=== PATIENT | male | born 1995 | race Caucasian/White ===

== ENCOUNTER 2017-12-07 17:59 | Emergency (ER) | payer OTHER ==
--- NOTE | 2017-12-07 18:21 | EDPHY ---
H & P Stated Complaint: + LOC hit head 2 days ago-CHONG, nasea, vision changes, and neck pain Time Seen by Provider: 12/07/17 18:20 HPI/ROS: HPI: This is a 22-year-old male who presents with Chief Complaint: + LOC hit head 2 days ago-CHONG, nausea, vision changes, and neck pain Location:head, neck Quality: fainted, pain Duration: 2 days ago Signs and Symptoms: no fever, no nausea, no vomiting, no photophobia, no noise sensitivity, no neck stiffness, no ear pain, no tinnitus, no nasal congestion, + sinus pressure, no weakness, no radiation, no aura, + nasal congestion Timing: Acute, lasting a few seconds, resolved Severity: Moderate Context: Patient recently moved here in June 2017 to live with his and from [place]. Reports that he has chronic migraines and sinus disease. Presents today with complaints of nausea, posterior neck pain since 2 days ago. Patient reports that he attended cervical thoracic lumbar sacral spinal manipulation around 2:00 p.m. He reports that after arriving home, he drank a cold milk shake. He reports that he was standing in the kitchen when he was drinking a milkshake he began to feel lightheaded and the next thing he remembers he woke up on the floor. And was in the kitchen talking to the patient and saw entire event. Reports that he hit the back of his head on the tile floor. Loss of consciousness was approximately"a few seconds." He woke up feeling disoriented but was at his baseline. Ate dinner without difficulty. And will come up several times in the middle night. Patient reports this will be his 5th concussion. Ambulating without any difficulty. Eating and drinking without any difficulty. Patient denies any paresthesias/weakness/decreased range of motion. He does report that he has posterior neck pain rate greater than left; believes it to be muscular in nature. Reports he has a primary care provider. Patient reports that he did not drink as much fluid as he should yesterday. Modifying Factors: None Comment: ROS: see HPI Constitutional: No fever, no chills, no weight loss Eyes: No blurred vision Respiratory: No shortness of breath, no cough Cardiovascular: No chest pain, no palpitations Gastrointestinal: No nausea, no vomiting, no diarrhea, no hematemesis, no blood in stool Genitourinary: No dysuria, no blood in urine Extremities: No myalgias, no edema Neurologic: No weakness, no numbness Skin: No rashes, no petechiae Hematologic: No bruising, no bleeding MEDICAL/SURGICAL/SOCIAL HISTORY: Medical history: Chronic migraines, chronic back and neck pain Surgical history: Denies Social history: Lives with his Aunt. Originally from [place]. CONSTITUTIONAL: Extremely polite and cooperative, young adult white male, well- developed well-nourished, awake and alert, no obvious distress HEENT: Atraumatic and normocephalic. NECK: supple, mild reproducible right trapezius tenderness; mild reproducible right paraspinous muscle tenderness; no paraspinous spasm; no midline tenderness , flexion 45 degrees, extension 45 degrees, right and left lateral flexion 45 degrees. No meningismus. Cardiovascular: Normal S1/S2, regular rate, regular rhythm, without murmur rub or gallop. PULMONARY/CHEST: Symmetrical and nontender. no crepitus. Clear to auscultation bilaterally. Good air movement. No accessory muscle usage. ABDOMEN: Soft, nondistended, nontender, no ecchymosis. PELVIC: no pain with rocking; bilateral hips flexion 125 degrees, extension 30 degrees, with no pain internal rotation and no pain external rotation. BACK: No midline tenderness, no paraspinous spasm, deep tendon reflexes 2/2, no pain with straight leg raise, No foot drop. Achilles reflexes are equal bilaterally. Able to walk on heels and toes without difficulty. EXTREMITIES: 2/2 pulses, strength 5/5, DIP/PIP/MCP flexion/extension intact with good light touch sensation. no deformities, no clubbing, no cyanosis or edema. Cranial nerves 2-12 grossly intact. Normal Romberg test. NEUROLOGICAL: no focal neuro deficits. GCS 15. Light touch sensation intact. SKIN: Warm and dry, no erythema. no rash. Good capillary refill. Source: Patient, Family (Aunt) Exam Limitations: No limitations - Personal History Current Tetanus/Diphtheria Vaccine: Unsure Current Tetanus Diphtheria and Acellular Pertussis (TDAP): Unsure - Medical/Surgical History Hx Asthma: No Hx Chronic Respiratory Disease: No Hx Diabetes: No Hx Cardiac Disease: No Hx Renal Disease: No Hx Cirrhosis: No Hx Alcoholism: No Hx HIV/AIDS: No Hx Splenectomy or Spleen Trauma: No Other PMH: chromic migraines, back and neck pain - Social History Smoking Status: Never smoked Constitutional: Initial Vital Signs Temperature (C) 36.8 C 12/07/17 18:01 Heart Rate 75 12/07/17 18:01 Respiratory Rate 18 12/07/17 18:01 Blood Pressure 145/113 H 12/07/17 18:01 O2 Sat (%) 96 12/07/17 18:01 O2 Delivery Mode Room Air Allergies/Adverse Reactions: amoxicillin Allergy (Verified 12/07/17 18:01) Sulfa (Sulfonamide Antibiotics) Allergy (Verified 12/07/17 18:01) Home Medications: Medication Instructions Recorded Ondansetron Odt [Zofran Odt 4 mg 4 mg PO Q4 PRN #12 tab 12/07/17 (*)] Medical Decision Making - Diagnostics EKG Interpretation: 12 lead EKG: Indication: Syncope Rhythm: Normal sinus rhythm, rate 70 beats per minute [place]: Normal Intervals: Normal QRS: Normal ST segments: Normal INTERPRETATION: No acute ischemic changes The 12 lead EKG was interpreted by myself and with attending. Imaging Results: Imaging Impressions Cervical Spine CT 12/07/17 18:58 Impression: Negative for fracture. Results called and discussed with Luna CASTILLO on 12/07/2017 at 19:39 ED Course/Re-evaluation: Based on [place] CT head protocol; imaging not indicated. Discussed with patient and aunt and they politely declined head CT scan. Orthostatics negative. Cervical CT scan, EKG and labs ordered. Politely declined urine sample due to having no urinary symptoms. Suspect vasovagal syncope secondary to hypovolemia and recent spinal manipulation. EKG my read shows no acute ischemic changes/arrhythmias Given p.o. Zofran for nausea. Patient clearly has a concussion. Will need concussion precautions, referral to Dr. Walsh [facility]. 1940: Called by Dr. Dexter Gupta, radiologist, who advises cervical CT scan shows no acute spinal process. Labs reviewed and no signs of anemia/YUE/electrolyte imbalance/elevated LFTs/ leukocytosis Reassessed patient; symptoms improved. This patient was seen under the supervision of my secondary supervising physician. I evaluated care for this patient independently. Discussed this patient with Dr. Jesus who did not see the patient. Differential Diagnosis: Syncope including but not limited to vasovagal syncope, arrhythmia, dehydration , and blood loss. - Data Points Laboratory Results: Laboratory Results 12/07/17 19:09 12/07/17 19:09 12/07/17 12/07/17 19:09 19:09 WBC 6.45 10^3/uL 10^3/uL (3.80-9.50) RBC 5.72 10^6/uL 10^6/uL (4.40-6.38) Hgb 16.7 g/dL g/dL (13.7-17.5) Hct 46.2 % % (40.0-51.0) MCV 80.8 fL L fL (81.5-99.8) MCH 29.2 pg pg (27.9-34.1) MCHC 36.1 g/dL g/dL (32.4-36.7) RDW 12.7 % % (11.5-15.2) Plt Count 268 10^3/uL 10^3/uL (150-400) MPV 9.3 fL fL (8.7-11.7) Neut % (Auto) 49.2 % % (39.3-74.2) Lymph % (Auto) 43.1 % % (15.0-45.0) [place] % (Auto) 5.4 % % (4.5-13.0) Eos % (Auto) 1.4 % % (0.6-7.6) Baso % (Auto) 0.6 % % (0.3-1.7) Nucleat RBC Rel Count 0.0 % % (0.0-0.2) Absolute Neuts (auto) 3.17 10^3/uL 10^3/uL (1.70-6.50) Absolute Lymphs (auto) 2.78 10^3/uL 10^3/uL (1.00-3.00) Absolute Monos (auto) 0.35 10^3/uL 10^3/uL (0.30-0.80) Absolute Eos (auto) 0.09 10^3/uL 10^3/uL (0.03-0.40) Absolute Basos (auto) 0.04 10^3/uL 10^3/uL (0.02-0.10) Absolute Nucleated RBC 0.00 10^3/uL 10^3/uL (0-0.01) Immature Gran % 0.3 % % (0.0-1.1) Immature Gran # 0.02 10^3/uL 10^3/uL (0.00-0.10) Sodium 140 mEq/L mEq/L (135-145) Potassium 3.9 mEq/L mEq/L (3.5-5.2) Chloride 102 mEq/L mEq/L (97-110) Carbon Dioxide 26 mEq/l mEq/l (22-31) Anion Gap 12 mEq/L mEq/L (8-16) BUN 18 mg/dL mg/dL (7-23) Creatinine 1.1 mg/dL mg/dL (0.7-1.3) Estimated GFR > 60 Glucose 94 mg/dL mg/dL (70-100) Calcium 10.2 mg/dL mg/dL (8.5-10.4) Total Bilirubin 0.8 mg/dL mg/dL (0.1-1.4) AST 25 IU/L IU/L (17-59) ALT 28 IU/L IU/L (21-72) Alkaline Phosphatase 50 IU/L IU/L (38-126) Total Protein 7.6 g/dL g/dL (6.3-8.2) Albumin 4.5 g/dL g/dL (3.5-5.0) Medications Given: Discontinued Medications Ondansetron HCl (Zofran Odt) 4 mg PO EDNOW ONE Stop: 12/07/17 18:58 Last Admin: 12/07/17 19:16 Dose: Not Given Departure - Departure Disposition: Home, Routine, Self-Care Clinical Impression: Vasovagal syncope Concussion Qualifiers: Encounter type: initial encounter Loss of consciousness presence/duration: with LOC of 30 min or less Qualified Code(s): S06.0X1A - Concussion with loss of consciousness of 30 minutes or less, initial encounter Condition: Good Instructions: Syncope (ED), Concussion (ED), Post Concussion Syndrome (ED) Additional Instructions: Cervical CT scan shows no acute spinal process. Consume a minimum of 8-10 glasses of water or electrolyte fluid replacement drinks that include Gatorade, Powerade, Pedialyte. Take Zofran 1 tab every 4 hours as needed for nausea, vomiting. Please observe concussion precautions including no physical or contact sports, no spinal manipulation until all symptoms resolved. Follow-up with Dr. Walsh in the [facility]. It would be beneficial for your sinus disease to take [id number] Claritin/ June/Zyrtec and nasal glucocorticoid spray daily. Return to the ER immediately if you have progressive headaches, neurologic deficits, gait abnormality, visual disturbance, slurred speech, or any other symptom that concerns you. Referrals: Kobi Nunez, [Primary Care Provider] - As per Instructions Sonia Walsh MD [Medical Doctor] - 5-7 days, call for appt. Prescriptions: Ondansetron Odt [Zofran Odt 4 mg (*)] 4 mg PO Q4 PRN #12 tab PRN Reason: Nausea/Vomiting, Use 1st
--- NOTE | 2017-12-07 18:37 | CPEKG ---
Heart Rate: 78 RR Interval: 769 P-R Interval: 160 QRSD Interval: 90 QT Interval: 352 QTC Interval: 401 P [place]: 70 QRS [place]: 104 T Wave [place]: 52 EKG Severity - BORDERLINE ECG - EKG Impression: SINUS RHYTHM EKG Impression: PROBABLE LEFT ATRIAL ABNORMALITY EKG Impression: CONSIDER RIGHT VENTRICULAR HYPERTROPHY Electronically Signed By: Abbe Jesus 07-Dec-2017 22:11:31
[2017-12-07] MEDS ORDERED: ONDANSETRON DISINTEGRATING 4 MG TAB PO ONE (18:57)
[2017-12-07 19:16] LABS: PLATELET COUNT 268 10^3/uL (150-400)
[2017-12-07 19:55] VITALS: BP 169/93
== END 2017-12-07 19:55 | disposition home or self-care (01) ==
DX: S06.0X1A Concussion with loss of consciousness of 30 minutes or less, initial encounter (principal); R55 Syncope and collapse; W22.8XXA Striking against or struck by other objects, initial encounter